=== PATIENT | female | born 1985 | race Caucasian/White ===

== ENCOUNTER 2024-09-05 12:32 | Outpatient (CLI) | payer SELFPAY ==
--- NOTE | ~2024-09-05 | US_ITS ---
EXAMINATION: US venous doppler [facility] DATE: 09/05/2024 13:14 INDICATION: Left lower limb pain and swelling TECHNIQUE: Grayscale ultrasound images without and with compression and Doppler ultrasound images of the left lower extremity veins were obtained. COMPARISON: None. FINDINGS: The visualized portions of left common femoral vein, profunda (deep) femoral vein, femoral vein, popl iteal vein, peroneal veins, posterior tibial veins, gastrocnemius vein and greater saphenous vein out flow are patent. There is a 1.3 x 0.8 x 1.0 cm anechoic cystic lesion the subcutaneous tissues overly ing the medial malleolus without internal vascular flow on color Doppler which could represent either a ganglion cyst or small hematoma/seroma. IMPRESSION: 1. No deep venous thrombosis in the left lower limb. 2. Subcutaneous 1.3 cm anechoic cystic lesion overlying the medial malleolus which could represent a ganglion cyst or hematoma/seroma. Reviewed, dictated and finalized at location [facility] IMPRESSION: 1. No deep venous thrombosis in the left lower limb. 2. Subcutaneous 1.3 cm anechoic cystic lesion overlying the medial malleolus wh ich could represent a ganglion cyst or hematoma/seroma.
== END 2024-09-05 12:33 | disposition home or self-care (01) ==
PROVIDERS: Visit Provider Orthopaedic Surgery
DX: R60.0 Localized edema (principal)
CPT/HCPCS: 93971